=== PATIENT | female | born 1980 | race African-American/Black ===

== ENCOUNTER 2017-08-27 18:28 | Emergency (ER) | payer SELFPAY ==
[~2017-08-27] VITALS: Ht 157.5 cm; Wt 79.4 kg
[~2017-08-27 18:28] MED LIST: BACTRIM DS TAB1 EAC1 ORAL; BENADRYL25 M3 PO; DIFLUCAN150 MG PO; IBUPROFEN600 MG ORAL; IBUPROFEN600 MG PO; KEFLEX500 MG ORAL; KENALOG 0.1% CR15 GM APPLIC; KETOCONAZOLE15 GM TOP; NORCO 5-325 TA1 EACH ORAL; NYSTATIN OINT15 GM TOPIC; PREDNISONE20 M1 PO
[2017-08-27] MEDS ORDERED: TYLENOL EXTRA500 MG ORAL (19:39)
[2017-08-27] MEDS ORDERED: AMOXICILLIN500 MG ORAL (19:39)
[2017-08-27 19:41] VITALS: BP 142/89
[2017-08-27 19:44] VITALS: BP 142/89
--- NOTE | 2017-08-29 00:01 | Emergency Room Report ---
History of Present Illness General Chief Complaint: Toothache Source: Patient Present Illness HPI 36-year-old female sent to ED complaining of tooth pain for last 4 days. Patient states she has multiple dental caries. States she is unable to see a dentist until next week. Pain is a 10 out of 10, throbbing, nonradiating. No fevers or chills. No other aggravating relieving factors. Denies any other associated symptoms Allergies: Coded Allergies: No Known Allergies (Unverified , 12/02/12) Patient History Past Medical History: asthma Past Surgical History: none Pertinent Family History: none Social History: Denies: smoking, alcohol use, drug use Last Menstrual Period: 08/16/17 Now: No Immunizations: UTD Reviewed Nursing Documentation: PMH: Agreed, PSxH: Agreed Nursing Documentation-PMH Hx Cardiac Problems: No - C/S in 2004 Hx Asthma: Yes Review of Systems All Other Systems: negative except mentioned in HPI Physical Exam Vital Signs Date Time Temp Pulse Resp B/P (MAP) Pulse Ox O2 Delivery O2 Flow Rate FiO2 08/27/17 19:11 98.2 81 20 156/84 100 Room Air Sp02 EP Interpretation: reviewed, normal General Appearance: no apparent distress, alert, GCS 15, non-toxic Head: normocephalic Eyes: bilateral eye normal inspection, bilateral eye PERRL ENT: hearing grossly normal, no angioedema, normal voice, TMs + canals normal, other - L lower wisdom tooth with caries, surrounding induration/erythema Neck: full range of motion, no meningismus, supple/symm/no masses Respiratory: normal inspection Cardiovascular #1: normal inspection Gastrointestinal: normal inspection Rectal: deferred Genitourinary: no CVA tenderness Musculoskeletal: normal inspection Neurologic: alert, oriented x3, responsive, motor strength/tone normal, sensory intact, speech normal Psychiatric: normal inspection Skin: normal inspection Lymphatic: normal inspection Medical Decision Making Diagnostic Impression: Primary Impression: Toothache ER Course 36-year-old female presents ED complaining of tooth pain. Cracked tooth, dental abscess, cavity Patient placed on stretcher. After initial history, physical exam reveals a female in mild distress. The tooth in question shows signficant decay. surrounding induration or swelling. Diagnosis- toothache Stable and discharged to home prescription for Tylenol and amoxicillin. Instructed to see dentist as a walk-in this week. Return to ED if symptoms recur or worse Last Vital Signs Date Time Temp Pulse Resp B/P (MAP) Pulse Ox O2 Delivery O2 Flow Rate FiO2 08/27/17 19:44 98.2 77 20 142/89 100 Room Air Status: improved Disposition: HOME, SELF-CARE Condition: Stable Scripts Amoxicillin* (AMOXIL*) 500 Mg Capsule 500 MG ORAL THREE TIMES A DAY, #21 CAP Prov: PATRICK WANG M.D. 08/27/17 Acetaminophen* (TYLENOL EXTRA STRENGTH*) 500 Mg Tablet 500 MG ORAL Q6H Y for Mild Pain/Temp > 100.5, #30 TAB 0 Refills Prov: PATRICK WANG M.D. 08/27/17 Referrals: NOT CHOSEN IPA/,REFERRING (PCP) Patient Instructions: Dental Pain PATRICK WANG M.D. Aug 29, 2017 00:01
== END 2017-08-27 19:45 | disposition home or self-care (01) ==
LOC: EMR 19:35
DX: K08.89 Other specified disorders of teeth and supporting structures (principal); J45.909 Unspecified asthma, uncomplicated
CPT/HCPCS: 99283